=== PATIENT | male | born 1975 | race Asian ===

== ENCOUNTER 2018-01-10 22:29 | Emergency (ER) | payer BC, OTHER ==
[~2018-01-10] VITALS: Ht 170.2 cm; Wt 74.8 kg
[~2018-01-10 22:29] MED LIST: ACET-8386 PO; CIPR500T4 PO; LAC PO; [UNRECOGNIZED DRUG - CODE] PO
[2018-01-10 22:32] VITALS: BP 131/89
[2018-01-11 00:33] LABS: HEMATOCRIT 43.9 % (36-52); HEMOGLOBIN 14.2 g/dL (12.0-18.0); MEAN CORPUSCULAR HEMOGLOBIN 27 pg (27-31); MEAN CORPUSCULAR HGB CONC 32 g/dL (33-37); MEAN CORPUSCULAR VOLUME 84.5 fL (80-94); PLATELET COUNT (AUTO) 254 K/uL (140-450); RED CELL DISTRIBUTION WIDTH 13.2 % (11.6-13.7); WHITE BLOOD COUNT (AUTO) 7.9 K/uL (4.8-10.8)
[2018-01-11 00:34] LABS: BASOPHILS % (AUTO) 4.2 % (0.0-2.0); EOSINOPHILS % (AUTO) 2.5 % (0.0-4.0); MONOCYTES % (AUTO) 6.8 % (1.7-9.3); NEUTROPHILS % (AUTO) 47.5 % (42.2-75.2)
[2018-01-11 00:35] LABS: BASOPHILS # (AUTO) 0.3 K/uL (0.00-0.22); EOSINOPHILS # (AUTO) 0.2 K/uL (0-0.4); LYMPHOCYTES # (AUTO) 3.1 K/uL (2.0-11.5); MONOCYTES # (AUTO) 0.5 K/uL (0.8-1.0); NEUTROPHILS # (AUTO) 3.8 K/uL (1.8-7.7)
[2018-01-11 00:41] LABS: ALBUMIN 3.9 g/dL (3.4-5.0); ANION GAP 11.2 (8-16); CARBON DIOXIDE 28.5 mmol/L (21-32); CREATININE 1.4 mg/dL (0.7-1.3); POTASSIUM 3.7 mmol/L (3.5-5.1); TOTAL BILIRUBIN 0.2 mg/dL (0.0-1.0)
[2018-01-11 01:03] LABS: CREATINE KINASE MB 0.4 ng/mL (0-3.6)
[2018-01-11] MEDS ORDERED: MECLIZINE 25 MG TAB PO ONE (01:05)
[2018-01-11 01:41] VITALS: BP 122/81
== END 2018-01-11 01:41 | disposition home or self-care (01) ==
LOC: MED 22:29
DX: R42 Dizziness and giddiness (principal); R07.89 Other chest pain; E11.9 Type 2 diabetes mellitus without complications; I10 Essential (primary) hypertension; E78.00 Pure hypercholesterolemia, unspecified; Z79.2 Long term (current) use of antibiotics; Z79.899 Other long term (current) drug therapy
CPT/HCPCS: 36415; 70450; 71045; 80053; 82550; 82553; 82948; 84484; 85025; 93005; 99285; J8597

== ENCOUNTER 2019-06-11 14:23 | Emergency (ER) | payer OTHER ==
[~2019-06-11] VITALS: Ht 170.2 cm; Wt 74.8 kg
[2019-06-11 14:40] VITALS: BP 126/89
--- NOTE | 2019-06-11 14:50 | NUR ---
PT TRIAGED, SENT BACK TO LOBBY AWAITING FOR BED
[2019-06-11 16:31] LABS: BASOPHILS # (AUTO) 0.1 K/uL (0.00-0.22); EOSINOPHILS # (AUTO) 0.2 K/uL (0-0.4); EOSINOPHILS % (AUTO) 2.6 % (0.0-4.0); HEMATOCRIT 45.9 % (36-52); HEMOGLOBIN 14.8 g/dL (12.0-18.0); LYMPHOCYTES % (AUTO) 29.7 % (20.5-51.1); MEAN CORPUSCULAR HEMOGLOBIN 28 pg (27-31); MEAN CORPUSCULAR HGB CONC 32 g/dL (33-37); MEAN CORPUSCULAR VOLUME 87.1 fL (80-94); MONOCYTES # (AUTO) 0.6 K/uL (0.8-1.0); MONOCYTES % (AUTO) 8.7 % (1.7-9.3); PLATELET COUNT (AUTO) 230 K/uL (140-450); RED BLOOD CELL COUNT(AUTO) 5.27 MIL/uL (4.20-6.10); RED CELL DISTRIBUTION WIDTH 14.9 % (11.6-13.7); WHITE BLOOD COUNT (AUTO) 6.9 K/uL (4.8-10.8)
[2019-06-11 16:50] LABS: ANION GAP 14.2 (8-16); CARBON DIOXIDE 26.9 mmol/L (21-32); POTASSIUM 4.1 mmol/L (3.5-5.1)
[2019-06-11 16:59] LABS: ALBUMIN 4.5 g/dL (3.4-5.0); TOTAL BILIRUBIN 0.3 mg/dL (0.0-1.0)
--- NOTE | 2019-06-11 17:21 | NUR ---
TO ED 02, AMBULATORY.
--- NOTE | 2019-06-11 17:27 | NUR ---
43/M TO ED WITH C/O L FLANK PAIN THAT IS INTERMITTENT OVER THE LAST 4 DAYS. DENIES N/V/D. DENIES DYSURIA/URINARY DIFFICULTY. ABLE TO VOID WITHOUT COMPLICATION. PT REPORTS HX OF KIDNEY STONES IN THE PAST AND SAYS PAIN IS SIMILAR, BUT LESS INTENSE. IN BED FOR MSE. NO OBVIOUS DISTRESS NOTED.
[2019-06-11 18:04] LABS: APPEARANCE,URINE CLEAR (CLEAR); BILIRUBIN,URINE NEGATIVE (NEGATIVE); BLOOD, URINE 2+ (NEGATIVE); LEUKOCYTE ESTERASE ,URINE NEGATIVE (NEGATIVE); NITRITE, URINE NEGATIVE (NEGATIVE); PH,URINE 5.5 (5.0-9.0); UGLUCOSE NEGATIVE (NEGATIVE)
[2019-06-11 18:07] LABS: COLOR,URINE STRAW (YELLOW)
[2019-06-11 18:26] LABS: RBC,URINE 0-5 /HPF (0-5); WBC,URINE NONE SEEN /HPF (0-5)
--- NOTE | 2019-06-11 18:35 | NUR ---
TO CT VIA W/C.
--- NOTE | 2019-06-11 19:06 | NUR ---
REPORT TO NOBLE MIRAMONTES.
--- NOTE | 2019-06-11 20:15 | NUR ---
PT RESTING IN BED ON CELLPHONE. IN SEMI FOWLERS POSITION, BED LOCKED AND IN LOW POSITION, X1 SIDE RAIL RAISED. VSS. WILL CONTINUE TO MONITOR.
[2019-06-11 20:24] VITALS: BP 122/84
--- NOTE | 2019-06-11 20:24 | NUR ---
Patient discharged with v/s stable. Written and verbal after care instructions given and explained. Patient alert, oriented and verbalized understanding of instructions. Ambulatory with steady gait. All questions addressed prior to discharge. ID band removed. Patient advised to follow up with PMD. Rx of ROBAXIN AND MOTRIN given. Patient educated on indication of medication including possible reaction and side effects. Opportunity to ask questions provided and answered.
== END 2019-06-11 20:24 | disposition home or self-care (01) ==
LOC: MED 14:23
DX: S39.012A Strain of muscle, fascia and tendon of lower back, initial encounter (principal); R10.9 Unspecified abdominal pain; E11.9 Type 2 diabetes mellitus without complications; I10 Essential (primary) hypertension; Z98.890 Other specified postprocedural states; Z79.899 Other long term (current) drug therapy; Z79.2 Long term (current) use of antibiotics; Z79.891 Long term (current) use of opiate analgesic; X58.XXXA Exposure to other specified factors, initial encounter; Y92.89 Other specified places as the place of occurrence of the external cause; Y93.89 Activity, other specified; Y99.8 Other external cause status
CPT/HCPCS: 36415; 80053; 81001; 83690; 85025; 99284

== ENCOUNTER 2019-12-26 12:27 | Emergency (ER) | payer OTHER, SELFPAY ==
[~2019-12-26] VITALS: Ht 170.2 cm; Wt 76.4 kg
[2019-12-26 12:35] VITALS: BP 146/93
--- NOTE | 2019-12-26 12:39 | NUR ---
Patient ambulated to bed 4. RN evaluating patient at bedside.
--- NOTE | 2019-12-26 13:01 | NUR ---
44/M presents to ED with complaints of left flank pain x3 days. Denies N/V/D. Denies any injury or trauma. Pt c/o 10/27 pain.
--- NOTE | 2019-12-26 13:05 | NUR ---
DEUCE VILLATORO AT BEDSIDE
[2019-12-26 13:35] LABS: APPEARANCE,URINE CLEAR (CLEAR); BILIRUBIN,URINE NEGATIVE (NEGATIVE); BLOOD, URINE 1+ (NEGATIVE); COLOR,URINE YELLOW (YELLOW); LEUKOCYTE ESTERASE ,URINE NEGATIVE (NEGATIVE); NITRITE, URINE NEGATIVE (NEGATIVE); UGLUCOSE NEGATIVE (NEGATIVE)
[2019-12-26] MEDS ORDERED: KETOROLAC 30 MG/ML VIAL IM ONE (13:35)
[2019-12-26 13:44] LABS: RBC,URINE 0-5 /HPF (0-5); WBC,URINE 0-5 /HPF (0-5)
--- NOTE | 2019-12-26 14:18 | NUR ---
COVID SWAB COLLECTED AND WALKED TO LAB
[2019-12-26 14:29] VITALS: BP 146/93
--- NOTE | 2019-12-26 14:30 | NUR ---
Patient discharged with v/s stable. Written and verbal after care instructions given and explained. Patient alert, oriented and verbalized understanding of instructions. Ambulatory with steady gait. All questions addressed prior to discharge. ID band removed. Patient advised to follow up with PMD. Rx of FLOMAX & IBUPROFEN given. Patient educated on indication of medication including possible reaction and side effects. Opportunity to ask questions provided and answered.
== END 2019-12-26 14:30 | disposition home or self-care (01) ==
LOC: MED 12:27 → EEVIPCON 12:27 → MED 14:30
DX: R31.9 Hematuria, unspecified (principal); E11.9 Type 2 diabetes mellitus without complications; I10 Essential (primary) hypertension; N20.0 Calculus of kidney; Z20.828 Contact with and (suspected) exposure to other viral communicable diseases; Z79.899 Other long term (current) drug therapy
CPT/HCPCS: 81001; 96372; 99283; J1885; U0003

== ENCOUNTER 2019-12-29 12:00 | Emergency (ER) | payer OTHER, SELFPAY ==
[~2019-12-29] VITALS: Ht 170.2 cm; Wt 75.3 kg
--- NOTE | 2019-12-29 12:08 | NUR ---
PT AMBULATED TO ER BED 08.
[2019-12-29 12:23] VITALS: BP 128/78
--- NOTE | 2019-12-29 12:29 | NUR ---
dr bello at bedside evaluating pt
--- NOTE | 2019-12-29 12:38 | NUR ---
PT AMBULATED TO ER BED 05
[2019-12-29 13:04] LABS: BASOPHILS % (AUTO) 0.4 % (0.0-2.0); EOSINOPHILS % (AUTO) 0.8 % (0.0-4.0); HEMATOCRIT 43.9 % (36-52); HEMOGLOBIN 14.3 g/dL (12.0-18.0); LYMPHOCYTES # (AUTO) 1.2 K/uL (2.0-11.5); LYMPHOCYTES % (AUTO) 22.4 % (20.5-51.1); MEAN CORPUSCULAR HEMOGLOBIN 29 pg (27-31); MEAN CORPUSCULAR HGB CONC 33 g/dL (33-37); MEAN CORPUSCULAR VOLUME 87.6 fL (80-94); MONOCYTES # (AUTO) 0.6 K/uL (0.8-1.0); MONOCYTES % (AUTO) 12.2 % (1.7-9.3); NEUTROPHILS # (AUTO) 3.3 K/uL (1.8-7.7); NEUTROPHILS % (AUTO) 64.2 % (42.2-75.2); PLATELET COUNT (AUTO) 218 K/uL (140-450); RED BLOOD CELL COUNT(AUTO) 5.01 MIL/uL (4.20-6.10); RED CELL DISTRIBUTION WIDTH 14.3 % (11.6-13.7); WHITE BLOOD COUNT (AUTO) 5.2 K/uL (4.8-10.8)
[2019-12-29 13:10] LABS: APPEARANCE,URINE CLEAR (CLEAR); BILIRUBIN,URINE NEGATIVE (NEGATIVE); BLOOD, URINE 2+ (NEGATIVE); COLOR,URINE YELLOW (YELLOW); LEUKOCYTE ESTERASE ,URINE NEGATIVE (NEGATIVE); NITRITE, URINE NEGATIVE (NEGATIVE); UGLUCOSE NEGATIVE (NEGATIVE)
[2019-12-29 13:22] LABS: RBC,URINE 11-20 (MOD) /HPF (0-5); WBC,URINE 0-5 /HPF (0-5)
[2019-12-29 13:37] LABS: ANION GAP 12.9 (8-16); CARBON DIOXIDE 28.6 mmol/L (21-32); CREATININE 1.4 mg/dL (0.6-1.3); POTASSIUM 4.5 mmol/L (3.5-5.1)
[2019-12-29 13:43] LABS: ALBUMIN 3.8 g/dL (3.4-5.0); TOTAL BILIRUBIN 0.4 mg/dL (0.0-1.0)
[2019-12-29 14:21] VITALS: BP 128/78
--- NOTE | 2019-12-29 14:22 | NUR ---
Patient discharged with v/s stable. Written and verbal after care instructions given and explained abdominal pain. Patient alert, oriented and verbalized understanding of instructions. Ambulatory with steady gait. All questions addressed prior to discharge. ID band removed. Patient advised to follow up with PMD. Rx of naprosyn given. Patient educated on indication of medication including possible reaction and side effects. Opportunity to ask questions provided and answered.
== END 2019-12-29 14:22 | disposition home or self-care (01) ==
LOC: MED 12:00
DX: M54.5 Low back pain (principal); E11.9 Type 2 diabetes mellitus without complications; I10 Essential (primary) hypertension; Z87.828 Personal history of other (healed) physical injury and trauma; Z79.899 Other long term (current) drug therapy
CPT/HCPCS: 36415; 80053; 81001; 83690; 85025; 99284

== ENCOUNTER 2020-08-12 21:26 | Emergency (ER) | payer OTHER, SELFPAY ==
[~2020-08-12] VITALS: Ht 170.2 cm; Wt 78.0 kg
[2020-08-12 21:51] VITALS: BP 129/70
[2020-08-12] MEDS ORDERED: NACL 0.9% 500 ML IV ONE (22:15)
[2020-08-12] MEDS ORDERED: KETOROLAC 30 MG/ML VIAL IVP ONE (22:15)
[2020-08-12 22:35] LABS: BASOPHILS % (AUTO) 0.6 % (0.0-2.0); EOSINOPHILS # (AUTO) 0.2 K/uL (0-0.4); EOSINOPHILS % (AUTO) 2.1 % (0.0-4.0); HEMATOCRIT 40.5 % (36-52); HEMOGLOBIN 13.2 g/dL (12.0-18.0); LYMPHOCYTES # (AUTO) 3.2 K/uL (2.0-11.5); LYMPHOCYTES % (AUTO) 42.8 % (20.5-51.1); MEAN CORPUSCULAR HEMOGLOBIN 28 pg (27-31); MEAN CORPUSCULAR HGB CONC 33 g/dL (33-37); MEAN CORPUSCULAR VOLUME 86.7 fL (80-94); MONOCYTES # (AUTO) 0.5 K/uL (0.8-1.0); MONOCYTES % (AUTO) 7.4 % (1.7-9.3); NEUTROPHILS # (AUTO) 3.5 K/uL (1.8-7.7); NEUTROPHILS % (AUTO) 47.1 % (42.2-75.2); PLATELET COUNT (AUTO) 256 K/uL (140-450); RED BLOOD CELL COUNT(AUTO) 4.67 MIL/uL (4.20-6.10); RED CELL DISTRIBUTION WIDTH 14.7 % (11.6-13.7); WHITE BLOOD COUNT (AUTO) 7.4 K/uL (4.8-10.8)
[2020-08-12 22:37] LABS: APPEARANCE,URINE CLEAR (CLEAR); BILIRUBIN,URINE NEGATIVE (NEGATIVE); BLOOD, URINE TRACE-I (NEGATIVE); COLOR,URINE YELLOW (YELLOW); LEUKOCYTE ESTERASE ,URINE NEGATIVE (NEGATIVE); NITRITE, URINE NEGATIVE (NEGATIVE); UGLUCOSE NEGATIVE (NEGATIVE)
[2020-08-12 22:41] LABS: RBC,URINE 0-5 /HPF (0-5)
[2020-08-12 22:42] LABS: WBC,URINE 0-5 /HPF (0-5)
[2020-08-12 22:58] LABS: ALBUMIN 3.9 g/dL (3.4-5.0); ANION GAP 11.6 (8-16); POTASSIUM 3.6 mmol/L (3.5-5.1); TOTAL BILIRUBIN 0.4 mg/dL (0.0-1.0)
[2020-08-12 23:09] LABS: PROTHROMBIN TIME 9.4 secs (10.8-13.4)
[2020-08-12 23:49] VITALS: BP 125/76
== END 2020-08-12 23:30 | disposition home or self-care (01) ==
LOC: MED 21:26
DX: R10.32 Left lower quadrant pain (principal); R31.9 Hematuria, unspecified; E11.9 Type 2 diabetes mellitus without complications; I10 Essential (primary) hypertension; Z79.899 Other long term (current) drug therapy
CPT/HCPCS: 36415; 74176; 80053; 81001; 85025; 85610; 85730; 96374; 99284; J1885; J7030